=== PATIENT | female | born 2000 | race Caucasian/White ===

== ENCOUNTER 2020-06-18 23:12 | Emergency (ER) | payer OTHER ==
[~2020-06-18] VITALS: Ht 172.7 cm; Wt 63.6 kg
[2020-06-18 23:59] VITALS: BP 128/72
--- NOTE | 2020-06-19 01:34 | PHYS DOC ---
Past Medical History Past Medical History: No Pertinent History Past Surgical History: No Surgical History Alcohol Use: Occasionally Drug Use: None General Adult EDM: Chief Complaint: MENSTRUAL PAIN/CRAMPS HPI: HPI: Patient is a 20 year old female presented to ER due to pelvic cramping, vaginal spotting. Patient had vaginal delivery 8 weeks ago, then 1 weeks ago she had an IUD placed. Patient said ever since she has been pelvic cramping, having pain with sexual intercourse. Having vaginal bleeding after sexual intercourse. Patient is worried that her IUD was placed in the wrong position. Patient denies any fever, no nausea vomiting. Review of Systems: Review of Systems: Constitutional: Denies fever or chills. [] Eyes: Denies change in visual acuity. [] HENT: Denies nasal congestion or sore throat. [] Respiratory: Denies cough or shortness of breath. [] Cardiovascular: Denies chest pain or edema. [] GI: Denies abdominal pain, nausea, vomiting, bloody stools or diarrhea. [] : Positive for pelvic pain, vaginal spotting. Musculoskeletal: Denies back pain or joint pain. [] Integument: Denies rash. [] Neurologic: Denies headache, focal weakness or sensory changes. [] Endocrine: Denies polyuria or polydipsia. [] Lymphatic: Denies swollen glands. [] Psychiatric: Denies depression or anxiety. [] Heart Score: C/O Chest Pain: N/A Risk Factors: Risk Factors: DM, Current or recent (<one month) smoker, HTN, HLP, family history of CAD, obesity. Risk Scores: Score 0 - 3: 2.5% MACE over next 6 weeks - Discharge Home Score 4 - 6: 20.3% MACE over next 6 weeks - Admit for Clinical Observation Score 7 - 10: 72.7% MACE over next 6 weeks - Early Invasive Strategies Physical Exam: PE: Constitutional: Well developed, well nourished, no acute distress, non-toxic appearance. [] HENT: Normocephalic, atraumatic, bilateral external ears normal, oropharynx moist, no oral exudates, nose normal. [] Eyes: PERRLA, EOMI, conjunctiva normal, no discharge. [] Neck: Normal range of motion, no tenderness, supple, no stridor. [] Cardiovascular:Heart rate regular rhythm, no murmur [] Lungs & Thorax: Bilateral breath sounds clear to auscultation [] Abdomen: Bowel sounds normal, soft, no tenderness, no masses, no pulsatile masses. [] Skin: Warm, dry, no erythema, no rash. [] Back: No tenderness, no CVA tenderness. [] Extremities: No tenderness, no cyanosis, no clubbing, ROM intact, no edema. [] Neurologic: Alert and oriented X 3, normal motor function, normal sensory function, no focal deficits noted. [] Psychologic: Affect normal, judgement normal, mood normal. [] EKG: EKG: [] Radiology/Procedures: Radiology/Procedures: [facility] [address] [place] [address] IMAGING REPORT Signed PATIENT: PATTI CASTILLO ACCOUNT: [id number] : 2000 LOCATION: ER AGE: 20 SEX: F EXAM STATUS: REG ER ORD. PHYSICIAN: GEMINI UMANZOR DO REASON: EVALUATE FOR LOCATION OF IUD , PELVIC PAIN. PROCEDURE: PELVIS INDICATION: Reason: EVALUATE FOR LOCATION OF IUD , PELVIC PAIN. / Spl. Instructions: / History: COMPARISON: None. IMPRESSION: Pelvis: Single view obtained. Intrauterine device is visualized near midline within the pelvis. Electronically signed by: Deana Valles MD (06/19/2020 2:23 AM) [id number] DICTATED and SIGNED BY: DEANA VALLES MD DATE: 06/19/20 [id number] [] Course & Med Decision Making: Course & Med Decision Making Pertinent Labs and Imaging studies reviewed. (See chart for details) Patient's xray shown that IUD is most likely in place. She will need to follow up with her OB.[employer] for reevaluation. Dior Disclaimer: Dior Disclaimer: This electronic medical record was generated, in whole or in part, using a voice recognition dictation system. Departure Departure Impression: Primary Impression: Pelvic pain Additional Impression: IUD (intrauterine device) in place Disposition: HOME / SELF CARE / HOMELESS Condition: STABLE Referrals: NO PCP (PCP) Patient Instructions: Levonorgestrel intrauterine device (IUD), Pelvic Pain, Female Additional Instructions: Thank you for visiting our Emergency Department. We appreciate you trusting us with your care. If any additional problems come up don't hesitate to return to visit us. Please follow up with your primary care provider so they can plan additional care if needed and know about the problem that you had. If symptoms worsen come back to the Emergency Department. Any concerning symptoms that start such as chest pain, shortness of air, weakness or numbness on one side of the body, running high fevers or any other concerning symptoms return to the ER. GEMINI UMANZOR DO June 19, 2020 01:34
--- NOTE | 2020-06-19 02:25 | RAD ---
INDICATION: Reason: EVALUATE FOR LOCATION OF IUD , PELVIC PAIN. / Spl. Instructions: / History: COMPARISON: None. IMPRESSION: Pelvis: Single view obtained. Intrauterine device is visualized near midline within the pelvis. Electronically signed by: Lyndon Valles MD (06/19/2020 2:23 AM) [id number]
== END 2020-06-19 02:04 | disposition home or self-care (01) ==
LOC: ER 23:12
DX: R10.2 Pelvic and perineal pain (principal); N93.9 Abnormal uterine and vaginal bleeding, unspecified; Z97.5 Presence of (intrauterine) contraceptive device
CPT/HCPCS: 72170; 99283